=== PATIENT | male | born 2000 | race Caucasian/White ===

== ENCOUNTER 2021-01-07 14:23 | Emergency (ER) | payer OTHER, SELFPAY ==
[2021-01-07 14:25] VITALS: BP 155/100; PULSE 83; RESP 17; TEMP 36.5; O2SAT 98; BMI 33.2
--- NOTE | 2021-01-07 14:39 | RAD_ITS ---
STUDY: X-RAY - RIGHT HAND REASON FOR EXAM: Male, 20 years old. Trauma TECHNIQUE: 3 view(s) of the hand. COMPARISON: None. FINDINGS: Normal radiocarpal articulation. Normal distal radioulnar joint. Normal visualized carpal bones. Normal carpal articulations Normal carpometacarpal articulation of the thumb. Normal second through fifth carpometacarpal joints. Normal metacarpi. Normal metacarpophalangeal joint of the thumb. Normal interphalangeal joint of the thumb. Normal proximal and distal phalanges of the thumb. Normal metacarpophalangeal joints of the second through fifth fingers. Normal proximal and distal interphalangeal joints of the second through fifth fingers. On the lateral view only there is a visualized fracture at the base of the middle phalanx of the fifth digit. RAD/Hand Min 3 Views IMPRESSION: Acute fracture at the base of the middle phalanx of the fifth digit. Seen on lateral view Electronically Signed: Selene Babcock MD at 16:00 EDT Tel , Service support ,
--- NOTE | 2021-01-07 16:01 | EX.ED.UPPERE ---
HPI History of Present Illness HPI Narrative: Patient presents with right hand pain after crush injury at football. No other injuries. Chief Complaint: Upper Extremity Injury Narrative Narrative: Patient presents with a crush injury to his [facility] Medical History (Updated 01/07/21 @ 16:[address] Fernandez Kruas MD) Asthma Allergy/AdvReac Type Severity Reaction Status Date / Time CHICKEN POX VACCINE Allergy NEEDS Uncoded 01/07/21 14:25 FOLLOW-UP Social History Smoking Status: Never smoker ROS ROS ED ROS Narrative Past medical history: none Medications: Reviewed Social history: Noncontributory Review of systems: Musculoskeletal: Right hand pain as in HPI Skin: No abrasions or lacerations Neurological: No weakness or paresthesias Hematologic: No easy bleeding or easy bruising EXAM Physical Exam Narrative Exam Narrative: Physical exam General: Patient does not appear in significant distress . Head: Normocephalic, Atraumatic Neck: No C-spine tenderness Cardiovascular: Normal distal pulses Back: Nontender, Normal Inspection. Extremities: Right hand shows tenderness over the middle phalanx of the fifth digit, no obvious deformity. There is also some tenderness over the proximal fifth metatarsal region, no wrist pain no pain in the rest of the extremities no other injuries. Skin: No abrasions, no lacerations Neurological: Normal strength and sensation Const Vital Signs: 01/07/21 14:25 Temperature 97.7 F L Temperature Source Temporal Pulse Rate 83 Respiratory Rate 17 Blood Pressure 155/100 H Blood Pressure Mean 118 Pulse Ox 98 Oxygen Delivery Method Room Air MDM MDM MDM Narrative Medical decision making narrative: X-ray shows a subtle fracture of the middle phalanx, otherwise no other injuries. I will splint and lilly tape and follow-up with orthopedics. Discharge Plan Triage Chief Complaint: Upper Extremity Injury ED Provider: Fernandez Kraus Dx/Rx/DC Orders Clinical Impression: Finger fracture Instructions: ED Fracture, Finger, Closed Primary Care Provider: [facility] Doctor,Out of Referrals: Carmen Doctor,Out of [Primary Care Provider] - 2 Days Disposition Disposition: Home, Self Care
== END 2021-01-07 16:31 | disposition home or self-care (01) ==
PROVIDERS: Emergency Provider Emergency Medicine
DX: S62.622A Displaced fracture of middle phalanx of right middle finger, initial encounter for closed fracture (principal); W23.0XXA Caught, crushed, jammed, or pinched between moving objects, initial encounter; J45.909 Unspecified asthma, uncomplicated
CPT/HCPCS: 73130; 99281; 99282